=== PATIENT | male | born 1990 | race Caucasian/White ===

== ENCOUNTER 2020-03-20 17:31 | Emergency (ER) | payer OTHER ==
[~2020-03-20] VITALS: Ht 180.3 cm; Wt 72.6 kg
[2020-03-20 17:31] VITALS: BP 110/61
--- NOTE | 2020-03-20 18:10 | NUR ---
SEEN AND EXAMINED BY MAYCO ZULETA
--- NOTE | 2020-03-20 18:24 | NUR ---
PATIENT REFUSED IV INSERTION AND FLUIDS. EXPLAINED RISKS AND BENEFITS STILL REFUSED.
[2020-03-20] MEDS ORDERED: IV NS 0.9% 1,000 ML BAG IV ONE (18:30)
--- NOTE | 2020-03-20 18:42 | NUR ---
Patient discharged in [employer] custody in stable condition. Written and verbal after care instructions given. Patient verbalizes understanding of instruction.
== END 2020-03-20 18:49 ==
LOC: ER 17:35
DX: R41.82 Altered mental status, unspecified (principal); F20.9 Schizophrenia, unspecified; F32.9 Major depressive disorder, single episode, unspecified; Z60.2 Problems related to living alone
CPT/HCPCS: J7030